=== PATIENT | male | born 1985 | race American Indian/Alaskan Native ===

== ENCOUNTER 2020-11-03 03:13 | Emergency (ER) | payer SELFPAY ==
[2020-11-03] MEDS ORDERED: IBUPROFEN 800 MG TAB PO ONE (10:11)
[2020-11-03] MEDS ORDERED: CLINDAMYCIN 300 MG CAP PO ONE (10:11)
--- NOTE | 2020-11-03 10:14 | Emergency Department Report ---
ED ENT HPI - General Chief complaint: Dental/Oral Stated complaint: LEFT SIDE JAW SWOLLEN Time Seen by Provider: 11/03/20 09:43 Source: patient Mode of arrival: Ambulatory Limitations: No Limitations - History of Present Illness Initial comments: 35-year-old male presents to the ER today with complaints of left lower jaw swelling and left dental pain. Patient states that his symptoms started yesterday. He denies similar symptoms in the past. He denies any fever, chills or any other symptoms at this time. MD complaint: tooth pain, other (Left lower jaw swelling) -: Last night - Related Data Previous Rx's Medication Instructions Recorded Last Taken Type Clindamycin [Clindamycin CAP] 300 mg PO QID #40 capsule 11/03/20 Unknown Rx Ibuprofen [Motrin 800 MG tab] 800 mg PO Q6HR PRN #30 tablet 11/03/20 Unknown Rx ED Dental HPI - General Chief complaint: Dental/Oral Stated complaint: LEFT SIDE JAW SWOLLEN Time Seen by Provider: 11/03/20 09:43 Source: patient Mode of arrival: Ambulatory Limitations: No Limitations - Related Data Previous Rx's Medication Instructions Recorded Last Taken Type Clindamycin [Clindamycin CAP] 300 mg PO QID #40 capsule 11/03/20 Unknown Rx Ibuprofen [Motrin 800 MG tab] 800 mg PO Q6HR PRN #30 tablet 11/03/20 Unknown Rx ED Review of Systems ROS: Stated complaint: LEFT SIDE JAW SWOLLEN Other details as noted in HPI Comment: All other systems reviewed and negative Constitutional: denies: chills, fever Eyes: denies: eye pain, eye discharge, vision change ENT: other (Left lower dental pain, left lower jaw swelling). denies: throat pain, congestion Respiratory: denies: cough, shortness of breath, wheezing Cardiovascular: denies: chest pain, palpitations Gastrointestinal: denies: abdominal pain, nausea, diarrhea Musculoskeletal: denies: back pain, joint swelling, arthralgia Skin: denies: rash, lesions Neurological: denies: headache, weakness, paresthesias Psychiatric: denies: anxiety, depression ED Past Medical Hx - Past Medical History Previous Medical History?: No - Surgical History Past Surgical History?: No - Social History Smoking Status: Current Every Day Smoker Substance Use Type: None - Medications Home Medications: Home Medications Medication Instructions Recorded Confirmed Last Taken Type Clindamycin [Clindamycin CAP] 300 mg PO QID #40 capsule 11/03/20 Unknown Rx Ibuprofen [Motrin 800 MG tab] 800 mg PO Q6HR PRN #30 tablet 11/03/20 Unknown Rx ED Physical Exam - General Limitations: No Limitations General appearance: alert, in no apparent distress - Head Head exam: Present: atraumatic, normocephalic, normal inspection - Eye Eye exam: Present: normal appearance, PERRL, EOMI Pupils: Present: normal accommodation - ENT ENT exam: Present: normal exam, normal orophraynx, mucous membranes moist, other (There is mild swelling noted to the external left lower jaw without any associated cellulitis. Patient does have a dental abscess associated with the first molar in the left lower jaw. There is tenderness to palpation. No trismus or drooling noted.) - Neck Neck exam: Present: normal inspection, full ROM. Absent: meningismus, lymphadenopathy - Cardiovascular Cardiovascular Exam: Present: regular rate, normal rhythm, normal heart sounds - Neurological Exam Neurological exam: Present: alert, oriented X3, CN II-XII intact, normal gait - Psychiatric Psychiatric exam: Present: normal affect, normal mood - Skin Skin exam: Present: intact ED Course Vital Signs 11/03/20 03:41 Temperature 99.0 F Pulse Rate 112 H Respiratory 18 Rate Blood Pressure 149/97 O2 Sat by Pulse 96 Oximetry Critical care attestation.: If time is entered above; I have spent that time in minutes in the direct care of this critically ill patient, excluding procedure time. ED Disposition Clinical Impression: Dental abscess Disposition: - TO HOME OR SELFCARE Is pt being admited?: No Does the pt Need Aspirin: No Condition: Stable Instructions: Dental Abscess, [id number] Additional Instructions: I recommend warm salt water rinses as often as possible. Take the pain medication and antibiotics as prescribed. Follow up with Dentist this week. Prescriptions: Clindamycin [Clindamycin CAP] 300 mg PO QID #40 capsule Ibuprofen [Motrin 800 MG tab] 800 mg PO Q6HR PRN #30 tablet PRN Reason: PAIN Referrals: PRIMARY CARE, [Primary Care Provider] - 3-5 Days Time of Disposition: 10:14
[2020-11-03 10:37] VITALS: BP 115/77
== END 2020-11-03 10:37 | disposition home or self-care (01) ==
LOC: ED 03:13
DX: K04.7 Periapical abscess without sinus (principal); F17.200 Nicotine dependence, unspecified, uncomplicated; Z79.899 Other long term (current) drug therapy